=== PATIENT | male | born 1955 | race Caucasian/White ===

== ENCOUNTER 2023-04-24 15:02 | Outpatient (RCR) | payer OTHER, SELFPAY ==
--- NOTE | 2023-04-24 16:38 | OPREHPOC ---
Outpatient Therapy Plan of Care This is a Multidisciplinary Plan of Care that may contain components documented by all disciplines (PT, OT, and ST.) PT Problem 1 PT Problem #1 Knowledge Deficit PT Goal 1 Goal Patient to demonstrate independence with HEP Target Visit 5 PT Problem 2 PT Problem #2 Pain PT Goal 1 Goal 1. Patient to report highest pain at 2/10 2. Patient to report ability to don shoes with no increase in pain Target Visit 15 PT Problem 3 PT Problem #3 Impaired Range of Motion PT Goal 1 Goal Patient to demonstrate 0-120 deg of L knee AROM to return to stair navigation at PLOF Target Visit 15 PT Problem 4 PT Problem #4 Impaired Strength PT Goal 1 Goal Patient to demonstrate 5/5 L LE strength to return to ambulation at PLOF Target Visit 15 PT Problem 5 PT Problem #5 Impaired Functional Mobil PT Goal 1 Goal 1. Patient to demonstrate 50% improvement in LEFS 2. Patient to ambulation with no AD and appropriate knee flexion through swing phase of gait cycle
--- NOTE | 2023-04-24 16:38 | PTOPEVAL1 ---
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 He reports he had a 2 day stay at the hospital. He reports since surgery his pain has decreased. He reports he has been doing exercises at home and that increases pain. He returns to [place] on 05/01/23. He reports his pain is most increased when he is walking. He is using a walker now but did not use one prior to surgery. He reports he is able to sleep in bed. Patient reports he is retired Reported Pain Level Pain Score 2: Self Report Assessment PT Clinical Summary Patient is a 67 year old male who presents to PT with L knee pain s/p L TKA. Patient demonstrates decreased L LE strength and ROM impairing his ability to ambulate and tolerate prolonged positioning without increase in pain. Patient would benefit from skilled PT to address impairments and return to PLOF Plan of Care Interventions Electrical Stimulation,Gait Training,Hot Pack/Cold Pack,Manual Therapy,Neuro Re-education,Patient/ Caregiver Educati,Therapeutic Activities, Therapeutic Exercise PT Services Indicated Yes Treatment Frequency and 3x weekly for 15 visits Duration These treatments will address the objective and functional deficits as defined above. The patient will be advanced safely and appropriately in order for the patient to progress towards his/her prior level of function. Additional exercises will be introduced and as well as a comprehensive home exercise program upon discharge, if needed, ?to ensure carryover of functional gains achieved in the clinic. This treatment plan has been reviewed and agreement upon by the patient.
--- NOTE | 2023-05-30 07:20 | OPREHPOC ---
Outpatient Therapy Plan of Care This is a Multidisciplinary Plan of Care that may contain components documented by all disciplines (PT, OT, and ST.) PT Problem 1 PT Problem #1 Knowledge Deficit PT Goal 1 Goal Patient to demonstrate independence with HEP Target Visit 5 Progress Met PT Problem 2 PT Problem #2 Pain PT Goal 1 Goal 1. Patient to report highest pain at 2/10 2. Patient to report ability to don shoes with no increase in pain Target Visit 15 Progress Partially Met PT Problem 3 PT Problem #3 Impaired Range of Motion PT Goal 1 Goal Patient to demonstrate 0-120 deg of L knee AROM to return to stair navigation at PLOF Target Visit 15 Progress Partially Met PT Problem 4 PT Problem #4 Impaired Strength PT Goal 1 Goal Patient to demonstrate 5/5 L LE strength to return to ambulation at PLOF Target Visit 15 Progress Partially Met PT Problem 5 PT Problem #5 Impaired Functional Mobil PT Goal 1 Goal 1. Patient to demonstrate 50% improvement in LEFS 2. Patient to ambulation with no AD and appropriate knee flexion through swing phase of gait cycle Progress Partially Met
--- NOTE | 2023-05-30 07:20 | PTOPPROG ---
Assessment and note entered by JT File, PT Evaluation Information Assessment Status Progress Diagnosis L knee pain Subjective Information patient reports he had a good trip to [place]. he reports he has been up and walking a bunch lateraly, but reports his L knee still swells quite a bit. he reports he tries to walk with a cane, but does not quite trust his knee fully as it will buckle on him at times. Assessment PT Clinical Summary mr. balderas presents to skilled PT services for his 10th skilled therapy visit today. he presents today with improved L knee flexion active and passive rom, and maintains L knee extension to 0 degrees. he is still ambulating with a walker, but this is mostly due to fear of buckling. he would benefit from continued skilled PT to achieve his remaining goals to improve his quality of life/ functional activity performance. Plan of Care Interventions Electrical Stimulation,Gait Training,Hot Pack/Cold Pack,Manual Therapy,Neuro Re-education,Patient/ Caregiver Educati,Therapeutic Activities, Therapeutic Exercise PT Services Indicated Yes Treatment Frequency and continue skilled PT per initial POC. Duration These treatments will address the objective and functional deficits as defined above. The patient will be advanced safely and appropriately in order for the patient to progress towards his/her prior level of function. Additional exercises will be introduced and as well as a comprehensive home exercise program upon discharge, if needed, ?to ensure carryover of functional gains achieved in the clinic. This treatment plan has been reviewed and agreement upon by the patient.
--- NOTE | 2023-06-11 14:53 | PTOPEVAL1 ---
Assessment and note entered by Robb Nguyen Evaluation Information Assessment Status Progress Diagnosis L knee pain Onset 04/17/23 Subjective Information Pt. reports that he has gotten better. He states that he is discouraged still with weakness and swelling. He reports that weakness in the left leg is most notable with steps. He states that he still has a sensation that the left leg will give out, but states that it has improved recently. He reports that he would like to continue with skilled PT in order to be able to safely do steps and walk without his cane. Reported Pain Level Pain Score 0: Self Report Assessment PT Clinical Summary Mr. Leung has attended a total of 15 treatment sessions. In this time he has demonstrated improvement in gait mechanics and strength. Despite these improvements he continues to have indications of weakness and impaired knee mobility . Continued skilled PT is indicated in order to improve strength, ROM and gait to assist with improved independence with IADL's. Plan of Care Interventions Gait Training,Manual Therapy,Neuro Re-education, Patient/Caregiver Education,Therapeutic Activities, Therapeutic Exercise PT Services Indicated Yes Treatment Frequency and Continue skilled PT 3x/week x 12 visits Duration These treatments will address the objective and functional deficits as defined above. The patient will be advanced safely and appropriately in order for the patient to progress towards his/her prior level of function. Additional exercises will be introduced and as well as a comprehensive home exercise program upon discharge, if needed, ?to ensure carryover of functional gains achieved in the clinic. This treatment plan has been reviewed and agreement upon by the patient.
== END 2023-07-23 08:08 | disposition still patient (30) ==
LOC: CHSPT 15:02
PROVIDERS: Visit Provider Orthopaedic Surgery
DX: Z47.1 Aftercare following joint replacement surgery (principal); Z96.652 Presence of left artificial knee joint
CPT/HCPCS: 97014; 97016; 97110; 97112; 97140; 97150; 97161; 97530; G0283

== ENCOUNTER 2023-07-25 08:10 | Outpatient (RCR) | payer OTHER, SELFPAY ==
--- NOTE | 2023-08-02 09:26 | OPREHPOC ---
Outpatient Therapy Plan of Care This is a Multidisciplinary Plan of Care that may contain components documented by all disciplines (PT, OT, and ST.) PT Problem 1 PT Problem #1 Knowledge Deficit PT Goal 1 Goal Patient to demonstrate independence with HEP Target Visit 5 Progress Met PT Problem 2 PT Problem #2 Pain PT Goal 1 Goal 1. Patient to report highest pain at 2/10 2. Patient to report ability to don shoes with no increase in pain Target Visit 33 Progress Partially Met PT Problem 3 PT Problem #3 Impaired Range of Motion PT Goal 1 Goal Patient to demonstrate 0-120 deg of L knee AROM to return to stair navigation at OF Target Visit 33 Progress Partially Met PT Problem 4 PT Problem #4 Impaired Strength PT Goal 1 Goal Patient to demonstrate 5/5 L LE strength to return to ambulation at PLOF. Target Visit 33 Progress Partially Met PT Goal 2 Goal Pt. will demonstrate 90% of weight total on the left compared to the right with the single limb leg press test indicating improved strength Target Visit 33 Progress Partially Met PT Problem 5 PT Problem #5 Impaired Functional Mobil PT Goal 1 Goal 1. Patient to demonstrate 50% improvement in LEFS 2. Patient to ambulation with no AD and appropriate knee flexion through swing phase of gait cycle 3. patient to ambulate with no reported fear of the L knee unlocking during ambulation cycle Target Visit 33 Progress Partially Met
--- NOTE | 2023-08-02 09:27 | PTOPREEVAL ---
Assessment and note entered by JT File, PT Evaluation Information Assessment Status Re-evaluation Diagnosis L knee pain Onset 04/17/23 Subjective Information patient reports he continues to have issues with the L knee. he reports the L knee still gives out on him at times. he reports it is less than it was , but this continues to frustrate him. he reports he returns to the [place] tomorrow and will have a lot to talk about regarding his knee. patient does report he had issues with the lower back prior to knee replacement where the L LE was weak and numb. he reports he can tell it is stronger, but the knee still gives out on him at times. he also reports he will get swelling and tightness in the L knee after being up on it for 15 minutes or more . he reports it will hurt behind the knee, to the side of the knee, inside the thigh, and across the front of the knee. Reported Pain Level Pain Score 0: Self Report Assessment PT Clinical Summary mr. balderas presents to skilled PT services for his 27th skilled therapy visit s/p L TKA. he continues to present with deficits in functional ability due to pain, tightness, instability of the L knee. he has made slight progress in L knee flexion rom, and maintains L knee extension at 0 degrees. patient ambulates with no AD, and less instability of the L knee incidents compared with 3 weeks ago. he is tender to palpation along the medial hamstrings, medial L knee jt line, and pes anserine bursa of the L knee that is indicative of L hamstrings tendonitis/pes anserine bursitis. he would benefit from continued skilled PT to address remaining objective/functional deficits and to improve his quality of life/functional activity performance. Plan of Care Interventions Therapeutic Exercise,Patient/Caregiver Educati, Manual Therapy,Neuro Re-education,Therapeutic Activities,Gait Training PT Services Indicated Yes Treatment Frequency and continue skilled PT 2x weekly for 6 more visits Duration These treatments will address the objective and functional deficits as defined above. The patient will be advanced safely and appropriately in order for the patient to progress towards his/her prior level of function. Additional exercises will be introduced and as well as a comprehensive home exercise program upon discharge, if needed, ?to ensure carryover of functional gains achieved in the clinic. This treatment plan has been reviewed and agreement upon by the patient.
--- NOTE | 2023-08-28 09:59 | OPREHPOC ---
Outpatient Therapy Plan of Care This is a Multidisciplinary Plan of Care that may contain components documented by all disciplines (PT, OT, and ST.) PT Problem 1 PT Problem #1 Knowledge Deficit PT Goal 1 Goal Patient to demonstrate independence with HEP Target Visit 5 Progress Met PT Problem 2 PT Problem #2 Pain PT Goal 1 Goal 1. Patient to report highest pain at 2/10 2. Patient to report ability to don shoes with no increase in pain Target Visit 33 Progress Partially Met PT Problem 3 PT Problem #3 Impaired Range of Motion PT Goal 1 Goal Patient to demonstrate 0-120 deg of L knee AROM to return to stair navigation at PLOF Target Visit 33 Progress Not Met PT Problem 4 PT Problem #4 Impaired Strength PT Goal 1 Goal Patient to demonstrate 5/5 L LE strength to return to ambulation at PLOF. Target Visit 33 Progress Not Met PT Goal 2 Goal Pt. will demonstrate 90% of weight total on the left compared to the right with the single limb leg press test indicating improved strength Target Visit 33 Progress Not Met PT Problem 5 PT Problem #5 Impaired Functional Mobil PT Goal 1 Goal 1. Patient to demonstrate 50% improvement in LEFS. met 2. Patient to ambulation with no AD and appropriate knee flexion through swing phase of gait cycle. met 3. patient to ambulate with no reported fear of the L knee unlocking during ambulation cycle Target Visit 33 Progress Partially Met
--- NOTE | 2023-08-28 09:59 | PTOPREEVAL ---
Assessment and note entered by JT File, PT Evaluation Information Assessment Status Re-evaluation Diagnosis L knee pain Onset 04/17/23 Subjective Information patient reports he has no pain. he reports the L knee still gives out on him. he reports he did pretty good this weekend. he reports it continues to get stiff still at times. he reports his surgeon continues to push him working. he reports the surgeon told him to continue skilled PT 1x weekly for 12 more weeks at their last visit. he reports he is also supposed to join a gym and work on losing weight. he did have a bout of bursitis, and had an injection to the L pes anserine bursa. he reports he has had no pain since the shot. he reports for 3-4 days after leaving therapy he struggles to walk. he reports he is compliant with HEP and gym workouts. Reported Pain Level Pain Score 0: Self Report Assessment PT Clinical Summary mr. balderas presents to skilled PT services for his 30th skilled therapy visit. he continues to improve slightly in rom of the L knee, but overall functional activity performance, strength, and ambulation has plateaued. he is compliant with his HEP at home, and performing exercises at a gym now for increased strength and stability of the L knee. he continues to report a fear of it giving out on him, and bouts of it giving out on him. we will hold on continued skilled PT this date, and allow patient to work on exercises independent. he will check in infrequently to have his rom measured. Plan of Care Interventions Therapeutic Exercise,Patient/Caregiver Educati, Manual Therapy,Neuro Re-education,Therapeutic Activities,Gait Training PT Services Indicated Yes Treatment Frequency and hold therapy at this time. patient to continue HEP Duration and gym exercises independently. will follow up with PT as needed for any flare ups or setbacks. These treatments will address the objective and functional deficits as defined above. The patient will be advanced safely and appropriately in order for the patient to progress towards his/her prior level of function. Additional exercises will be introduced and as well as a comprehensive home exercise program upon discharge, if needed, ?to ensure carryover of functional gains achieved in the clinic. This treatment plan has been reviewed and agreement upon by the patient.
--- NOTE | 2023-10-30 11:14 | PCPTNOTE ---
on 10/15/23, patient stopped by clinic to have his ROM evaluated. he displayed 0-116 degrees active L knee rom. he continues to ambulate without an AD. he was informed his chart would be DC'd, but to stop in and have rom evaluated/communicate with therapist on updates as he felt needed.
== END 2023-08-28 23:59 | disposition home or self-care (01) ==
LOC: CHSPT 08:10
PROVIDERS: Visit Provider Orthopaedic Surgery
DX: Z47.1 Aftercare following joint replacement surgery (principal); M25.562 Pain in left knee; Z96.652 Presence of left artificial knee joint
CPT/HCPCS: 97110; 97112; 97140; 97530

== ENCOUNTER 2024-08-12 08:02 | Outpatient (RCR) | payer OTHER, SELFPAY ==
--- NOTE | 2024-08-12 08:51 | PTOPEVAL1 ---
Assessment and note entered by Robb Nguyen Evaluation Information Assessment Status Evaluation ICD-10 Condition Codes (PT) Pain in low back M54.50,Radiculopathy, lumbar region M54.16 Onset 03/16/24 Subjective Information Pt. reports that around the beginning of March he reach to grab a log and tried to pull the log and felt pain on the left side of the back. He reports that he was doing chiropractic initially without any relief. 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 He states that pain will radiate down the back side of each leg and into his calves. He reports that laying on his side will also increase his pain. He states that he has increased pain with prolonged standing and prolonged sitting. He states that he will use Advil for pain, which helps slightly. He states that he is waking often due to sleep. He states that his goal is to reduce his pain so he can stand longer and improve his sleep. Reported Pain Level Pain Score 4: Self Report Assessment PT Clinical Summary Pt. is a 69 year old male who enters the clinic with low back pain. He presents with indication of degenerative changes of the lumbar spine. Pt. currently presents with l.e. weakness, impaired gait, impaired trunk mobility, impaired flexibility, pain and impaired postural awareness. Continued skilled PT is indicated in order to improve these areas to allow the pt. improved comfort and efficiency with IADL's. Plan of Care Interventions Electrical Stimulation,Gait Training,Hot Pack/Cold Pack,Manual Therapy,Mechanical Traction,Neuro Re- education,Patient/Caregiver Education,Therapeutic Activities,Therapeutic Exercise PT Services Indicated Yes Treatment Frequency and 2x/week x 10 visits Duration These treatments will address the objective and functional deficits as defined above. The patient will be advanced safely and appropriately in order for the patient to progress towards his/her prior level of function. Additional exercises will be introduced and as well as a comprehensive home exercise program upon discharge, if needed, ?to ensure carryover of functional gains achieved in the clinic. This treatment plan has been reviewed and agreement upon by the patient.
--- NOTE | 2024-08-12 08:52 | OPREHPOC ---
Outpatient Therapy Plan of Care This is a Multidisciplinary Plan of Care that may contain components documented by all disciplines (PT, OT, and ST.) PT Problem 1 PT Problem #1 Knowledge Deficit PT Goal 1 Goal / Goal Update Pt. will be independent with a HEP addressing trunk mobility, flexibility and strength. Target Visit 2 PT Problem 2 PT Problem #2 Impaired Range of Motion PT Goal 1 Goal / Goal Update Pt. will be able to safely lift object from floor to waist in repetition without cuing and proper mechanics. Target Visit 10 PT Problem 3 PT Problem #3 Impaired Functional Mobility PT Goal 1 Goal / Goal Update Pt. will present with less than 30% limitation on the Oswestry indicating significant functional improvement. Pt. will report being able to sleep through the night without pain disturbance. Pt. will report being able to stand for duration of 1 hour with 4/10 pain at worst. Target Visit 10 PT Problem 4 PT Problem #4 Impaired Strength PT Goal 1 Goal / Goal Update Pt. will present 4+/5 gross l.e. strength Target Visit 10
--- NOTE | 2024-09-11 09:03 | OPREHPOC ---
Outpatient Therapy Plan of Care This is a Multidisciplinary Plan of Care that may contain components documented by all disciplines (PT, OT, and ST.) PT Problem 1 PT Problem #1 Knowledge Deficit PT Goal 1 Goal / Goal Update Pt. will be independent with a HEP addressing trunk mobility, flexibility and strength. Target Visit 2 Progress Met PT Problem 2 PT Problem #2 Impaired Range of Motion PT Goal 1 Goal / Goal Update Pt. will be able to safely lift object from floor to waist in repetition without cuing and proper mechanics. Target Visit 10 Progress Not Met PT Problem 3 PT Problem #3 Impaired Functional Mobility PT Goal 1 Goal / Goal Update Pt. will present with less than 30% limitation on the Oswestry indicating significant functional improvement. Pt. will report being able to sleep through the night without pain disturbance. Pt. will report being able to stand for duration of 1 hour with 4/10 pain at worst. Target Visit 10 Progress Not Met PT Problem 4 PT Problem #4 Impaired Strength PT Goal 1 Goal / Goal Update Pt. will present 4+/5 gross l.e. strength Target Visit 10 Progress Not Met
--- NOTE | 2024-09-11 09:03 | PTOPPROGNS ---
Assessment and note entered by JT File, PT Evaluation Information Assessment Status Progress ICD-10 Condition Codes (PT) Pain in low back M54.50,Radiculopathy, lumbar region M54.16 Onset 03/16/24 Subjective Information patient reports he has been away in [facility]. he reports he has continued pain in the lower back and down his bilateral LE's. he reports he is unable to bend and lift, and continues to have pain with increased standing. he reports the symptoms down the L LE are worse than the R LE. Assessment PT Clinical Summary mr balderas returns to skilled PT after a trip to [place]. he continues to have lower back pain, and pain down both legs (L more than R). he presents still with weakness in the bilateral LE's, mm tightness, and deficits in functional lifting ability. he would benefit from return to and continuation of current POC to improve his objective/functional deficits to return to his prior level functional activity performance/ quality of life. Plan of Care Interventions Electrical Stimulation,Gait Training,Hot Pack/Cold Pack,Manual Therapy,Mechanical Traction,Neuro Re- education,Patient/Caregiver Education,Therapeutic Activities,Therapeutic Exercise PT Services Indicated Yes Treatment Frequency and continue with initial POC Duration These treatments will address the objective and functional deficits as defined above. The patient will be advanced safely and appropriately in order for the patient to progress towards his/her prior level of function. Additional exercises will be introduced and as well as a comprehensive home exercise program upon discharge, if needed, ?to ensure carryover of functional gains achieved in the clinic. This treatment plan has been reviewed and agreement upon by the patient.
--- NOTE | 2024-10-07 15:15 | PTOPREEVAL ---
Assessment and note entered by Carmne Baxter DPT Evaluation Information Assessment Status Progress ICD-10 Condition Codes (PT) Pain in low back M54.50,Radiculopathy, lumbar region M54.16 Onset 03/16/24 Subjective Information patient reports his low back is improvement. he reports that pain has decreased. he also reports that he has returned to being able to lay on his side for short amounts of time. he reports he is now able to sit and stand for prolonged times. he reports lifting objects continue to be difficult. Reported Pain Level Pain Score 2: Self Report Assessment PT Clinical Summary mr. balderas has attended 10 visits of skilled PT with good progress at this time. he has improved ability to sleep, sit for prolonged periods and stand for periods to complete house hold tasks. he continues to have pain with lifting objects around the home as well as LE weakness and would benefit from continued skilled PT to address impairments and return to PLOF. Plan of Care Interventions Electrical Stimulation,Gait Training,Hot Pack/Cold Pack,Manual Therapy,Mechanical Traction,Neuro Re- education,Patient/Caregiver Education,Therapeutic Activities,Therapeutic Exercise PT Services Indicated Yes Treatment Frequency and continue 2x weekly for 5 visits Duration These treatments will address the objective and functional deficits as defined above. The patient will be advanced safely and appropriately in order for the patient to progress towards his/her prior level of function. Additional exercises will be introduced and as well as a comprehensive home exercise program upon discharge, if needed, ?to ensure carryover of functional gains achieved in the clinic. This treatment plan has been reviewed and agreement upon by the patient.
--- NOTE | 2024-11-04 09:23 | OPREHPOC ---
Outpatient Therapy Plan of Care This is a Multidisciplinary Plan of Care that may contain components documented by all disciplines (PT, OT, and ST.) PT Problem 1 PT Problem #1 Knowledge Deficit PT Goal 1 Goal / Goal Update Pt. will be independent with a HEP addressing trunk mobility, flexibility and strength. Target Visit 2 Progress Met PT Problem 2 PT Problem #2 Impaired Range of Motion PT Goal 1 Goal / Goal Update Pt. will be able to safely lift object from floor to waist in repetition without cueing and proper mechanics. Target Visit 18 Progress Not Met PT Problem 3 PT Problem #3 Impaired Functional Mobility PT Goal 1 Goal / Goal Update Pt. will present with less than 30% limitation on the Oswestry indicating significant functional improvement. Pt. will report being able to sleep through the night without pain disturbance. Pt. will report being able to stand for duration of 1 hour with 4/10 pain at worst. Target Visit 18 Progress Not Met PT Goal 2 Goal / Goal Update patient to ambulate 1300ft in 6 minute walk test without rest or increased pain patient to carry 22.5 lbs box for 400ft without increased pain Target Visit 18 PT Problem 4 PT Problem #4 Impaired Strength PT Goal 1 Goal / Goal Update Pt. will present 4+/5 gross l.e. strength Target Visit 18 Progress Partially Met
--- NOTE | 2024-11-04 09:24 | PTOPREEVAL ---
Assessment and note entered by JT File, PT Evaluation Information Assessment Status Re-evaluation ICD-10 Condition Codes (PT) Pain in low back M54.50,Radiculopathy, lumbar region M54.16 Onset 03/16/24 Subjective Information patient reports he is feeling good today. he reports his pain is low in the lower back. patient reports he has pain increased in the lower back with bending over, lifting objects from the floor, and carrying objects. he also has trouble with standing and walking too long. he reports it is difficulty to put his shoes and socks on without assist. he reports it is all so much better than when he initially started PT. Reported Pain Level Pain Score 1: Self Report Assessment PT Clinical Summary mr. balderas presents to skilled PT services for his 15th skilled PT visit. he continues to have pain in the lower back and LE's, and deficits in functional activity performance. he has made progress towards, but not yet met many of his goals for skilled PT. however, subjective improvements are reported by the patient. he would benefit from continued skilled PT to address his remaining objective/functional deficits and achieve his remaining functional goals. Plan of Care Interventions Electrical Stimulation,Gait Training,Hot Pack/Cold Pack,Manual Therapy,Mechanical Traction,Neuro Re- education,Patient/Caregiver Education,Therapeutic Activities,Therapeutic Exercise PT Services Indicated Yes Treatment Frequency and continue skilled PT 1x weekly for 3 more visits Duration These treatments will address the objective and functional deficits as defined above. The patient will be advanced safely and appropriately in order for the patient to progress towards his/her prior level of function. Additional exercises will be introduced and as well as a comprehensive home exercise program upon discharge, if needed, ?to ensure carryover of functional gains achieved in the clinic. This treatment plan has been reviewed and agreement upon by the patient.
== END 2024-11-04 20:00 | disposition still patient (30) ==
LOC: CHSPT 08:02
DX: M54.50 Low back pain, unspecified (principal)
CPT/HCPCS: 97014; 97110; 97140; 97150; 97161; 97530; G0283

== ENCOUNTER 2024-11-25 08:30 | Outpatient (RCR) | payer OTHER, SELFPAY ==
--- NOTE | 2024-11-25 09:32 | PTOPDC ---
Assessment and note entered by Carmen Baxter DPT Evaluation Information Assessment Status Discharge ICD-10 Condition Codes (PT) Pain in low back M54.50,Radiculopathy, lumbar region M54.16 Onset 03/16/24 Subjective Information Patient reports that his back has improved. He reports he continues to have trouble bending over. He reports he can stand and walk longer periods of time. He reports continued difficulty with sleeping but does report improvement. Reported Pain Level Pain Score 2: Self Report Assessment PT Clinical Summary Mr. Leung was seen for 18 visits of skilled PT with good progress towards goals. Patient has improved ability to stand and ambulate for prolonged distances as well as improved LE strength. He continues to have difficulty with sleep but does report overall improvement. He is independent with HEP and is appropriate for DC at this time. Plan of Care PT Services Indicated Yes
== END 2024-11-25 20:00 | disposition home or self-care (01) ==
LOC: CHSPT 08:30
DX: M54.50 Low back pain, unspecified (principal)
CPT/HCPCS: 97014; 97110; 97112; G0283

== ENCOUNTER 2025-02-17 08:02 | Outpatient (RCR) | payer OTHER, SELFPAY ==
--- NOTE | 2025-02-17 09:05 | OPREHPOC ---
Outpatient Therapy Plan of Care This is a Multidisciplinary Plan of Care that may contain components documented by all disciplines (PT, OT, and ST.) PT Problem 1 PT Problem #1 Knowledge Deficit PT Goal 1 Goal / Goal Update independent and compliant with HEP Target Visit 4 PT Problem 2 PT Problem #2 Pain PT Goal 1 Goal / Goal Update patient to report no more than 2/10 pain in the lower back and L LE with activities. Target Visit 8 PT Problem 3 PT Problem #3 Impaired Strength PT Goal 1 Goal / Goal Update improve bilateral hip strength to 4+/5 or better improve R knee flex to 5/5 Target Visit 8 PT Problem 4 PT Problem #4 Impaired Functional Mobility PT Goal 1 Goal / Goal Update patient to squat and lift 30lbs from floor to waist with safe mechanics and no pain patient to ambulate 15 minutes without rest patient to stand for for 1 hour treatment without sitting rest oswestry to display 30% or less functional deficits Target Visit 8
--- NOTE | 2025-02-17 09:06 | PTOPEVAL1 ---
Assessment and note entered by JT File, PT Evaluation Information Assessment Status Evaluation ICD-10 Condition Codes (PT) Pain in low back M54.50 Onset 02/10/2025 Subjective Information patient reports he was greatly improved after his last bout of therapy for his lower back, but reports he still has symptoms down the L LE. he reports he would like to be stronger in the legs, be able to tolerate long standing bouts, and bend down to reach something off the floor. Reported Pain Level Pain Score 0: Self Report Assessment PT Clinical Summary mr. balderas is a 69 yo man who presents to skilled PT services for evaluation and treatment of lower back and L LE pain/symptoms. 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 he displays weakness of the bilateral hips , deficits in lumbar arom (especially extension and side bending), and limited mobility reach to the floor to lift objects. continued skilled PT is indicated to improve his objective/functional deficits and progress towards a return to his prior level functional activity performance/ quality of life. Plan of Care Interventions Electrical Stimulation,Gait Training,Hot Pack/Cold Pack,Manual Therapy,Neuro Re-education,Patient/ Caregiver Education,Therapeutic Activities, Therapeutic Exercise PT Services Indicated Yes Treatment Frequency and 2x weekly for 8 visits Duration These treatments will address the objective and functional deficits as defined above. The patient will be advanced safely and appropriately in order for the patient to progress towards his/her prior level of function. Additional exercises will be introduced and as well as a comprehensive home exercise program upon discharge, if needed, ?to ensure carryover of functional gains achieved in the clinic. This treatment plan has been reviewed and agreement upon by the patient.
--- NOTE | 2025-03-24 10:50 | OPREHPOC ---
Outpatient Therapy Plan of Care This is a Multidisciplinary Plan of Care that may contain components documented by all disciplines (PT, OT, and ST.) PT Problem 1 PT Problem #1 Knowledge Deficit PT Goal 1 Goal / Goal Update independent and compliant with HEP Target Visit 4 Progress Met PT Problem 2 PT Problem #2 Pain PT Goal 1 Goal / Goal Update patient to report no more than 2/10 pain in the lower back and L LE with activities. Target Visit 8 Progress Met PT Problem 3 PT Problem #3 Impaired Strength PT Goal 1 Goal / Goal Update improve bilateral hip strength to 4+/5 or better -not met improve R knee flex to 5/5 -met Target Visit 8 Progress Partially Met PT Goal 2 Goal / Goal Update continue first PT Problem 4 PT Problem #4 Impaired Functional Mobility PT Goal 1 Goal / Goal Update patient to squat and lift 30lbs from floor to waist with safe mechanics and no pain -not met patient to ambulate 15 minutes without rest -not met patient to stand for for 1 hour treatment without sitting rest -not met oswestry to display 30% or less functional deficits -not met Target Visit 8 Progress Not Met PT Goal 2 Goal / Goal Update continue
--- NOTE | 2025-03-24 10:50 | PTOPPROG ---
Assessment and note entered by Nasreen Penn, PT Evaluation Information Assessment Status Progress ICD-10 Condition Codes (PT) Pain in low back M54.50 Onset 02/10/2025 Subjective Information Eliseo reports his back has been feeling good. He notes pain at highest a 1/10 after splitting wood. He also notes improvements in his strength in his legs but he does not feel he is quite where he needs to be. He does still have limitations with how long he can stand and walk. 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 Assessment PT Clinical Summary Eliseo Leung is a 69 yo man who has completed 8 skilled PT services for lower back and L LE pain/ symptoms. He continues to have difficulty with prolonged standing and walking and notes weakness in his left foot. He does feel he has gained strength in his legs since starting PT but is not quite where he needs to be. He demonstrates improved LE strength and was able to lift 37.5# from oden to waist level. He has not been able to lift from the floor level. He is progressing toward meeting goals. He will benefit from continued skilled PT to further address strength and functional abilities. Plan of Care Interventions Patient/Caregiver Education,Therapeutic Activities ,Therapeutic Exercise PT Services Indicated Yes Treatment Frequency and Continue 2x weekly for 8 visits Duration These treatments will address the objective and functional deficits as defined above. The patient will be advanced safely and appropriately in order for the patient to progress towards his/her prior level of function. Additional exercises will be introduced and as well as a comprehensive home exercise program upon discharge, if needed, ?to ensure carryover of functional gains achieved in the clinic. This treatment plan has been reviewed and agreement upon by the patient.
--- NOTE | 2025-04-21 08:51 | PTOPDC ---
Assessment and note entered by Carmen Baxter DPT Evaluation Information Assessment Status Re-evaluation ICD-10 Condition Codes (PT) Pain in low back M54.50 Onset 02/10/2025 Subjective Information Patient reports that his strength in his legs has improved as well as his balance. He also reports that his ankles have felt stronger. He reports he is active at home and doing HEP. Patient reports he is able to walk ~10 minutes prior to needing to rest. Patient reports he is able to stand for ~30 minutes prior to needing to rest. Reported Pain Level Pain Score 1: Self Report Assessment PT Clinical Summary Mr. Leung has been seen for 15 visits of skilled PT. He made good progress towards goals throughout plan of care. He demonstrates decreased pain, improve lifting ability and improved ambulation distances. 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 He is independent with HEP and is appropriate for DC at this time. Plan of Care PT Services Indicated No
== END 2025-04-21 10:37 | disposition home or self-care (01) ==
LOC: CHSPT 08:02
DX: M54.59 Other low back pain (principal)
CPT/HCPCS: 97110; 97112; 97150; 97161; 97530; 97750